=== PATIENT | male | born 1995 | race Two or more races ===

== ENCOUNTER 2022-01-10 22:11 | Emergency (ER) | payer BC, OTHER ==
[~2022-01-10] VITALS: Ht 182.9 cm; Wt 146.0 kg
[2022-01-11 00:05] VITALS: BP 122/65
[2022-01-11] MEDS ORDERED: LIDOCAINE 1% HCL (LOCAL ANESTH.) INJ 20ML MDV IJ ONE (00:30)
== END 2022-01-11 01:07 | disposition home or self-care (01) ==
LOC: ER 22:11
DX: S61.210A Laceration without foreign body of right index finger without damage to nail, initial encounter (principal); W26.0XXA Contact with knife, initial encounter; Y93.89 Activity, other specified; Y92.89 Other specified places as the place of occurrence of the external cause; Y99.8 Other external cause status
CPT/HCPCS: 12001; 99283; J2001

== ENCOUNTER 2022-01-20 18:46 | Emergency (ER) | payer BC ==
[2022-01-20 21:18] VITALS: BP 148/98
== END 2022-01-20 22:56 | disposition home or self-care (01) ==
LOC: ER 18:47
DX: S61.210D Laceration without foreign body of right index finger without damage to nail, subsequent encounter (principal); X58.XXXD Exposure to other specified factors, subsequent encounter

== ENCOUNTER 2022-02-22 20:26 | Emergency (ER) | payer BC ==
[~2022-02-22] VITALS: Ht 180.3 cm; Wt 143.0 kg
[2022-02-22 22:00] VITALS: BP 133/77
[2022-02-22] MEDS ORDERED: CEPH-510 PO (22:12)
== END 2022-02-22 22:22 | disposition home or self-care (01) ==
LOC: ER 20:26
DX: R22.42 Localized swelling, mass and lump, left lower limb (principal); Z79.899 Other long term (current) drug therapy